=== PATIENT | female | born 1990 | race Caucasian/White ===

== ENCOUNTER 2023-06-23 13:59 | Emergency (ER) | payer OTHER ==
[2023-06-23] MEDS ORDERED: KETOROLAC 15 MG/ML 1 ML VIAL IVP STA (14:09)
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
[2023-06-23 14:25] VITALS: RESP 18; TEMP 97.4
[2023-06-23 14:47] LABS: Basophils % (A) 0 %; Eosinophils % (A) 0 %; HCT 36.4 % (34.0-46.0); HGB 12.3 gm/dL (11.4-16.0); Lymphocytes # (A) 1.3 k/uL (1.0-4.8); Lymphocytes % (A) 29 %; MCH 30.2 pg (25.0-35.0); MCHC 33.9 g/dL (31.0-37.0); MCV 88.9 fL (80.0-100.0); Mean Platelet Volume 8.6; Monocytes # (A) 0.3 k/uL (0-1.0); Monocytes % (A) 7 %; Neutrophils # (A) 2.8 k/uL (1.3-7.7); Neutrophils % (A) 60 %; Platelet Count 182 k/uL (150-450); RBC 4.09 m/uL (3.80-5.40); RDW 12.5 % (11.5-15.5); WBC 4.6 k/uL (3.8-10.6)
[2023-06-23 14:57] LABS: ALT 42 U/L (4-34); AST 36 U/L (14-36); African American GFR (CKD) >90 (>60 ml/min/1.73 sqM); Alkaline Phosphatase 58 U/L (38-126); Amylase 42 U/L (30-110); Anion Gap 9 mmol/L; Blood Urea Nitrogen 8 mg/dL (7-17); Calcium 8.8 mg/dL (8.4-10.2); Carbon Dioxide 19 mmol/L (22-30); Chloride 110 mmol/L (98-107); Glucose 92 mg/dL (74-99); Lipase 109 U/L (23-300); Non-African American GFR(CKD) >90 (>60 ml/min/1.73 sqM); Potassium 3.9 mmol/L (3.5-5.1); Sodium 138 mmol/L (137-145); Total Bilirubin 0.5 mg/dL (0.2-1.3); Total Protein 6.8 g/dL (6.3-8.2)
[2023-06-23 14:58] LABS: Appearance,Urine Clear (Clear); Bacteria,Urine Many /hpf; Bilirubin,Urine Negative (Negative); Blood,Urine Negative (Negative); Color,Urine Light Yellow; Glucose,Urine (UA) Negative (Negative); Ketones,Urine Negative (Negative); Leukocyte Esterase,Urine Negative (Negative); Mucus,Urine Rare /hpf; Nitrite,Urine Positive (Negative); Protein,Urine Negative (Negative); RBC,Urine 1 /hpf (0-5); Specific Gravity,Urine 1.008 (1.001-1.035); Squamous Epithelial Cell,Urine <1 /hpf (0-4); Urobilinogen,Urine <2.0 mg/dL (<2.0); WBC,Urine 5 /hpf (0-5)
--- NOTE | 2023-06-23 15:24 | US ---
EXAMINATION TYPE: US abdomen APPY DATE OF EXAM: 06/23/2023 COMPARISON: NONE CLINICAL INDICATION: Female, 33 years old with history of pain; RLQ pain TECHNIQUE: Multiple sonographic images of the right lower quadrant were obtained with graded compress ion. FINDINGS: APPENDIX AP Diameter (normal < 6mm): not visualized Is the appendix seen in its entirety from the proximal cecum to distal end: no Is the appendix compressible: no Does the appendix wall appear hypervascular: no Is an appendicolith present: no Is there inflammatory changes or free fluid present: no TRAY DELIVERY AIDE NOTES: IMPRESSION: Nonvisualization of the appendix.
--- NOTE | 2023-06-23 15:25 | US ---
EXAMINATION TYPE: US transvaginal DATE OF EXAM: 06/23/2023 COMPARISON: NONE CLINICAL INDICATION: Female, 33 years old with history of pain; RLQ pain TECHNIQUE: Transvaginal (TV). EXAM MEASUREMENTS: Uterus: 7.9 x 3.2 x 5.2 cm Endometrial Stripe: .4 cm Left Ovary: 3.4 x 2.0 x 1.8 cm 1. Uterus: Anteverted wnl 2. Endometrium: wnl 3. Right Ovary: Obscured by overlying bowel gas 4. Left Ovary: Anechoic area seen 1.6 x 1.8 x 1.3 cm. Spectral, color and waveform doppler imaging shows good arterial and venous flow within the left ov felipe; there is no evidence for ovarian torsion. 5. Bilateral Adnexa: wnl 6. Posterior cul-de-sac: wnl IMPRESSION: Probable functional left ovarian cyst. This could be confirmed with follow-up study in 6 weeks.
[2023-06-23 17:07] VITALS: BP 115/64; PULSE 79
[2023-06-24 14:26] LABS: N. gonorrhoeae,PCR Negative (Negative)
[2023-06-24 16:06] LABS: C. trachomatis,PCR Negative (Negative)
== END 2023-06-23 17:40 | disposition home or self-care (01) ==
LOC: EC 13:59
DX: N39.0 Urinary tract infection, site not specified (principal); N83.202 Unspecified ovarian cyst, left side
CPT/HCPCS: 36415; 80053; 82150; 83605; 83690; 85025; 81001; 81025; 87491; 87591; 93976; 76705; 76830; 99285; 96374; J1885